=== PATIENT | male | born 1960 | race Caucasian/White ===

== ENCOUNTER 2020-07-08 14:06 | Outpatient (CLI) | payer OTHER ==
[2020-07-09 01:47] LABS: SARS-CoV-2 PCR by NAA Not Detected (NotDetected)
== END 2020-07-08 14:07 | disposition home or self-care (01) ==
LOC: CSHLAB 14:06
PROVIDERS: ATTEND Internal Medicine Pulmonary Disease
DX: Z20.822 Contact with and (suspected) exposure to COVID-19 (principal); R06.09 Other forms of dyspnea
CPT/HCPCS: 87635; U0003; U0005

== ENCOUNTER 2020-07-13 13:28 | Outpatient (CLI) | payer OTHER | END 2020-07-13 13:29 | disposition home or self-care (01) | LOC: CSHCP 13:28 | PROVIDERS: ATTEND Internal Medicine Pulmonary Disease | DX: R06.09 Other forms of dyspnea (principal); R94.2 Abnormal results of pulmonary function studies | CPT/HCPCS: 94060; 94726; 94729; 94760 ==